=== PATIENT | male | born 1990 | race Caucasian/White ===

== ENCOUNTER 2018-05-24 09:04 | Emergency (ER) | payer OTHER, MEDICAID ==
[~2018-05-24] VITALS: Ht 175.3 cm; Wt 108.4 kg
--- NOTE | 2018-05-24 09:15 | NUR ---
Patient ambulated to bed 7. RN evaluating patient at bedside.
[2018-05-24 09:16] VITALS: BP 121/68
--- NOTE | 2018-05-24 09:20 | NUR ---
28 Y M C/O DIARRHEA X 6 DAYS. -FEVER, +NAUSEATED, -VOMITING. BOWEL SOUNDS ACTIVE IN ALL 4 QUADRANTS. LAST BM THIS MORNING. PT STATES HE FEELS DEHYDRATED. NO PAIN. [id number]. VSS AT THIS TIME. BED IS DOWN, LOCKED, BED RAIL X 1,ERMD NOTIFIED. PT PLACED IN GOWN. PMH- DIAGNOSED WITH ASTHMA A CHILD RX-NONE
--- NOTE | 2018-05-24 09:26 | NUR ---
DR ATWOOD AT BEDSIDE
[2018-05-24] MEDS ORDERED: NACL 0.9% 1,000 ML IV ONE (09:30)
[2018-05-24 11:12] VITALS: BP 118/70
--- NOTE | 2018-05-24 11:12 | NUR ---
Patient discharged with v/s stable. Written and verbal after care instructions given and explained. Patient verbalized understanding. Ambulatory with steady gait. All questions addressed prior to discharge. Advised to follow up with PMD.
== END 2018-05-24 11:12 | disposition home or self-care (01) ==
LOC: MED 09:04
DX: E86.0 Dehydration (principal); J45.909 Unspecified asthma, uncomplicated
CPT/HCPCS: 96360; 99283; J7030